=== PATIENT | female | born 1940 | race Caucasian/White ===

== ENCOUNTER 2016-04-10 06:18 | Inpatient (IN) | payer MEDICARE, OTHER ==
[2016-04-10] MEDS ORDERED: Meclizine 12.5 MG Tab PO ONE (06:32)
--- NOTE | 2016-04-10 06:32 | EDM.PDOC ---
<Jason oRbert - Last Filed: 04/10/16 06:55> ED HPI DIZZINESS - General Chief Complaint: Neuro Symptoms/Deficits Stated Complaint: IN BY AMB Time Seen by Provider: 04/10/16 06:27 Source of Information: Reports: Patient, EMS Exam Limitations: Reports: No limitations - History of Present Illness INITIAL COMMENTS - FREE TEXT/NARRATIVE: 75 yo white female c/o dizziness and N&V w/ movement of head. Previous episode last year (seen at [facility]). Symptom Onset Date: 04/10/16 Symptom Onset Time: 12:00 Timing/Duration: Reports: Hour(s): Quality: Reports: lightheaded, vertigo Severity: moderate Improves With: Reports: stationary position Worsens With: Reports: head movement Associated Symptoms: Reports: off balance - Related Data Allergies/ADRs: Allergies Allergy/AdvReac Type Severity Reaction Status Date / Time Penicillins Allergy Cannot Verified 04/10/16 06:23 Remember Home Meds: Home Meds Calcium Carbonate/Vitamin D3 [Calcium 600 + Vit D 400 Tablet] 1 each PO BID [History] Lovastatin 10 mg PO DAILY 04/10/16 [History] Metoprolol Succinate [Toprol XL 50mg] 50 mg PO DAILY 04/10/16 [History] Multivitamin [Multivitamins] 1 each PO DAILY 04/10/16 [History] Warfarin Sodium [Jantoven] 5 mg PO DAILY 04/10/16 [History] ED ROS GENERAL - Review of Systems Review Of Systems: See Below Constitutional: Reports: no symptoms HEENT: Reports: Vertigo Respiratory: Reports: no symptoms Cardiovascular: Reports: No symptoms Endocrine: Reports: no symptoms GI/Abdominal: Reports: No symptoms Musculoskeletal: Reports: no symptoms Skin: Reports: no symptoms Neurological: Reports: dizziness Psychiatric: Reports: No symptoms Hematologic/Lymphatic: Reports: no symptoms Immunologic: Reports: no symptoms ED EXAM, DIZZINESS - Physical Exam Exam: See Below Exam Limited By: No limitations General Appearance: alert, no apparent distress Eye Exam: bilateral eye: PERRL Ears: normal external exam Nose: normal inspection Throat/Mouth: Normal inspection, Normal lips Head Exam: atraumatic Vertigo: reproducible Neck: normal inspection, supple Respiratory/Chest: no respiratory distress, lungs clear Cardiovascular: normal peripheral pulses, regular rate, rhythm GI/Abdominal: normal bowel sounds Neurological: alert, no motor/sensory deficits Back Exam: normal inspection Extremities: normal inspection, normal range of motion Psychiatric: normal affect, normal mood Skin Exam: Warm, Dry Course - Vital Signs Last Recorded V/S: Last Vital Signs Temp 35.9 C 04/10/16 06:24 Pulse 88 04/10/16 06:24 Resp 16 04/10/16 06:24 BP 141/80 H 04/10/16 06:24 Pulse Ox 98 04/10/16 06:24 Orthostatic Blood Pressure [ 143/75 Sitting] Orthostatic Blood Pressure [ 123/66 Supine] - Orders/Labs/Meds Orders: Active Orders 24 hr Category Date Time Status EKG Documentation Completion [RC] URGENT Care 04/10/16 07:34 Active Head wo Cont [CT] Urgent Exams 04/10/16 06:53 Taken Sodium Chloride 0.9% @ 125 MLS/HR (1000ml) Med 04/10/16 09:00 Ordered Sodium Chloride 0.9% [Normal Saline] 1,000 ml IV ASDIRECTED Sodium Chloride 0.9% [Normal Saline] 500 ml Med 04/10/16 06:45 Active IV ASDIRECTED Medication Orders Sodium Chloride (Normal Saline) 500 mls @ 100 mls/hr IV ASDIRECTED SUN Labs: Laboratory Tests 04/10/16 04/10/16 04/10/16 Range/Units 06:45 06:45 06:45 WBC 5.7 (5.0-10.0) 10^3/uL RBC 4.15 L (4.2-5.4) 10^6/uL Hgb 12.6 (12.0-16.0) g/dL Hct 38.2 (37.0-47.0) % MCV 92.0 (80-100) fL MCH 30.4 (27.0-34.0) pg MCHC 33.0 (33.0-35.0) g/dL Plt Count 232 (150-450) 10^3/uL Neut % (Auto) 56.0 (42.2-75.2) % Lymph % (Auto) 28.5 (20.5-50.1) % [place] % (Auto) 8.9 H (2-8) % Eos % (Auto) 5.4 H (1.0-3.0) % Baso % (Auto) 1.2 H (0.0-1.0) % PT (9.0-12.0) SEC INR (0.9-1.2) Sodium 139 (135-145) mmol/L Potassium 3.1 L (3.6-5.0) mmol/L Chloride 105 (101-111) mmol/L Carbon Dioxide 24.0 (21.0-31.0) mmol/L Anion Gap 13.1 BUN 13 (7-18) mg/dL Creatinine 0.8 (0.6-1.3) mg/dL Est Cr Clr Drug Dosing 53.55 mL/min Estimated GFR (MDRD) > 60 BUN/Creatinine Ratio 16.25 Glucose 166 H (74-105) mg/dL Calcium 8.8 (8.4-10.2) mg/dl Total Bilirubin 0.6 (0.2-1.0) mg/dL AST 21 (10-42) IU/L ALT 15 (10-60) IU/L Alkaline Phosphatase 48 (42-121) IU/L Troponin I < 0.02 (0.00-0.02) ng/ml Total Protein 6.8 (6.7-8.2) g/dl Albumin 3.8 (3.2-5.5) g/dl Globulin 3.0 Albumin/Globulin Ratio 1.27 Urine Color (YELLOW) Urine Appearance (CLEAR) Urine pH (5.0-9.0) Ur Specific [place] (1.005-1.030) Urine Protein (NEGATIVE) Urine Glucose (UA) (NEGATIVE) Urine Ketones (NEGATIVE) Urine Occult Blood (NEGATIVE) Urine Nitrite (NEGATIVE) Urine Bilirubin (NEGATIVE) Urine Urobilinogen (0.2-1.0) mg/dL Ur Leukocyte Esterase (NEGATIVE) Urine RBC /HPF Urine WBC (0-5/HPF) /HPF Ur Epithelial Cells /HPF Urine Bacteria (0-FEW/HPF) /HPF Urine Mucus /LPF 04/10/16 04/10/16 Range/Units 06:45 08:15 WBC (5.0-10.0) 10^3/uL RBC (4.2-5.4) 10^6/uL Hgb (12.0-16.0) g/dL Hct (37.0-47.0) % MCV (80-100) fL MCH (27.0-34.0) pg MCHC (33.0-35.0) g/dL Plt Count (150-450) 10^3/uL Neut % (Auto) (42.2-75.2) % Lymph % (Auto) (20.5-50.1) % [place] % (Auto) (2-8) % Eos % (Auto) (1.0-3.0) % Baso % (Auto) (0.0-1.0) % PT 22.9 H (9.0-12.0) SEC INR 2.2 H (0.9-1.2) Sodium (135-145) mmol/L Potassium (3.6-5.0) mmol/L Chloride (101-111) mmol/L Carbon Dioxide (21.0-31.0) mmol/L Anion Gap BUN (7-18) mg/dL Creatinine (0.6-1.3) mg/dL Est Cr Clr Drug Dosing mL/min Estimated GFR (MDRD) BUN/Creatinine Ratio Glucose (74-105) mg/dL Calcium (8.4-10.2) mg/dl Total Bilirubin (0.2-1.0) mg/dL AST (10-42) IU/L ALT (10-60) IU/L Alkaline Phosphatase (42-121) IU/L Troponin I (0.00-0.02) ng/ml Total Protein (6.7-8.2) g/dl Albumin (3.2-5.5) g/dl Globulin Albumin/Globulin Ratio Urine Color Yellow (YELLOW) Urine Appearance Slightly cloudy (CLEAR) Urine pH 6.0 (5.0-9.0) Ur Specific [place] 1.015 (1.005-1.030) Urine Protein Negative (NEGATIVE) Urine Glucose (UA) Negative (NEGATIVE) Urine Ketones Trace H (NEGATIVE) Urine Occult Blood Trace-intact H (NEGATIVE) Urine Nitrite Negative (NEGATIVE) Urine Bilirubin Negative (NEGATIVE) Urine Urobilinogen 0.2 (0.2-1.0) mg/dL Ur Leukocyte Esterase Moderate H (NEGATIVE) Urine RBC 0-5 /HPF Urine WBC 40-50 H (0-5/HPF) /HPF Ur Epithelial Cells Many H /HPF Urine Bacteria Few (0-FEW/HPF) /HPF Urine Mucus Few H /LPF Meds: Medications Generic Name Dose Route Start Last Admin Trade Name Freq PRN Reason Stop Dose Admin Sodium Chloride 500 mls @ 100 mls/hr 04/10/16 06:45 Normal Saline IV ASDIRECTED SUN Discontinued Medications Generic Name Dose Route Start Last Admin Trade Name Faustina PRN Reason Stop Dose Admin Diazepam 5 mg 04/10/16 06:32 Valium IVPUSH 04/10/16 06:33 ONETIME ONE Meclizine HCl 12.5 mg 04/10/16 06:32 04/10/16 07:05 Antivert PO 04/10/16 06:33 12.5 mg ONETIME ONE Administration Departure - Departure Disposition: Admitted As Inpatient 65 Clinical Impression: Vertigo Referrals: PCP,Not In Area [Primary Care Provider] - Care Plan Goals: Discussed the examination, lab, EKG and CT results with Dr. Connors. Dr. Connors accepted the patient for continued evaluation and management as an inpatient at [facility] in [place]. - My Orders Last 24 Hours: My Active Orders 04/10/16 07:34 EKG Documentation Completion [RC] URGENT 04/10/16 09:00 Sodium Chloride 0.9% @ 125 MLS/HR (1000ml) Sodium Chloride 0.9% [Normal Saline] 1,000 ml IV ASDIRECTED - Assessment/Plan Last 24 Hours: My Active Orders 04/10/16 07:34 EKG Documentation Completion [RC] URGENT 04/10/16 09:00 Sodium Chloride 0.9% @ 125 MLS/HR (1000ml) Sodium Chloride 0.9% [Normal Saline] 1,000 ml IV ASDIRECTED <John Paul Mancera - Last Filed: 04/10/16 08:58> Course - Re-Assessments/Exams Free Text/Narrative Re-Assessment/Exam: 04/10/16 07:04 Patient care was taken over at shift change. According to the nursing staff and initial provider, the patient came in with positional vertigo, but now has difficulties remembering the events of the past 24 hours. The patient reports that she has no idea of where she currently is and does not remember what they had for dinner last night. The patient's daughter reports this is not normal for this patient. A CT of the head was ordered, awaiting the results. 04/10/16 07:07 Departure - Departure Time of Disposition: 08:57 Condition: fair - My Orders Last 24 Hours: My Active Orders 04/10/16 07:34 EKG Documentation Completion [RC] URGENT 04/10/16 09:00 Sodium Chloride 0.9% @ 125 MLS/HR (1000ml) Sodium Chloride 0.9% [Normal Saline] 1,000 ml IV ASDIRECTED - Assessment/Plan Last 24 Hours: My Active Orders 04/10/16 07:34 EKG Documentation Completion [RC] URGENT 04/10/16 09:00 Sodium Chloride 0.9% @ 125 MLS/HR (1000ml) Sodium Chloride 0.9% [Normal Saline] 1,000 ml IV ASDIRECTED
[2016-04-10] MEDS ORDERED: Sodium Chloride 0.9% 500 ML IV SCH (06:45)
[2016-04-10 07:13] LABS: CHLORIDE,CL 105 mmol/L (101-111); SODIUM,NA 139 mmol/L (135-145)
[2016-04-10] MEDS ORDERED: Sodium Chloride 0.9% 1,000 ML IV SCH (09:00)
[2016-04-10] MEDS ORDERED: Ondansetron 4 MG/2 ML SDV IV PRN (10:23)
[2016-04-10] MEDS ORDERED: Metoclopramide 10 MG/2 ML SDV IVPUSH PRN (10:23)
[2016-04-10] MEDS ORDERED: Acetaminophen 325 MG Tab PO PRN (10:24)
[2016-04-10] MEDS ORDERED: Ondansetron 4 MG/2 ML SDV IVPUSH PRN (10:24)
[2016-04-10] MEDS ORDERED: Polyethylene Glycol 3350 Powder 17 GM Packet PO PRN (10:24)
[2016-04-10] MEDS ORDERED: Promethazine 25 MG/ML SDV IM PRN (10:24)
[2016-04-10] MEDS ORDERED: Potassium Chloride 10 MEQ Tab.ER PO ONE (10:37)
--- NOTE | 2016-04-10 10:40 | PCM.HP ---
H&P History of Present Illness - General Date of Service: 04/10/16 Admit Problem/Dx: Admission Diagnosis/Problem Admission Diagnosis/Problem Dizziness Source of Information: Patient History Limitations: Reports: No limitations - History of Present Illness Initial Comments - Free Text/Narative: patient presents to ER with sudden dizziness early this morning when she turned in bed. andreas asssociated symptoms are nausea dn vomiting. her spinning like dizziness gets worse with head motion. She had runny echo and sinus congestions 4 days ago but stopped after 2 days. she has no other respiratory sx. she admits urinary frequency for the last 2 weeks but no dysuria. she denies fever, chills or any other symptoms. In ER her lab was remarkable only for K 3.1. CT head and EKG unremarkable. She was given IV fluids, meclizine, and valium and patient felt better. - Related Data Allergies/Adverse Reactions: Allergies Allergy/AdvReac Type Severity Reaction Status Date / Time Penicillins Allergy Cannot Verified 04/10/16 06:23 Remember Home Medications: Home Meds Calcium Carbonate/Vitamin D3 [Calcium 600 + Vit D 400 Tablet] 1 each PO BID [History] Lovastatin 10 mg PO DAILY 04/10/16 [History] Metoprolol Succinate [Toprol XL 50mg] 50 mg PO DAILY 04/10/16 [History] Multivitamin [Multivitamins] 1 each PO DAILY 04/10/16 [History] Warfarin Sodium [Jantoven] 5 mg PO DAILY 04/10/16 [History] Past Medical History HEENT History: Reports: Other (see below) Other HEENT History: vertigo Cardiovascular History: Reports: Hypertension Social & Family History - Family History Family Medical History: Noncontributory - Tobacco Use Smoking Status *Q: Never Smoker - Caffeine Use Caffeine Use: Reports: Coffee - Recreational Drug Use Recreational Drug Use: No H&P Review of Systems - Review of Systems: Review Of Systems: See Below General: Reports: no symptoms HEENT: Denies: dysphasia, ear pain, eye pain, headaches, hearing changes, post nasal drip, sore throat, visual changes Pulmonary: Reports: no symptoms Cardiovascular: Reports: no symptoms Gastrointestinal: Denies: Abdominal pain, Anorexia, Black stool, Bloody stool, Constipation, Diarrhea, Decreased appetite, Difficulty swallowing, Distension, Hematemesis, Hematochezia, Melena Genitourinary: Reports: frequency. Denies: dysuria, burning, pain Musculoskeletal: Reports: no symptoms Skin: Reports: no symptoms Psychiatric: Reports: no symptoms Neurological: Reports: no symptoms Hematologic/Lymphatic: Reports: no symptoms Immunologic: Reports: no symptoms Exam - Exam Exam: See Below - Vital Signs Vital Signs: Last Vital Signs Temp 35.9 C 04/10/16 06:24 Pulse 88 04/10/16 06:24 Resp 16 04/10/16 06:24 BP 141/80 H 04/10/16 06:24 Pulse Ox 98 04/10/16 06:24 Weight: 56.699 kg - Exam General: alert, oriented, cooperative, mild distress (due to dizziness. trying to hold still in bed) HEENT: Conjunctiva clear, EACs clear, EOMI, Hearing intact, Mucosa moist & pink , Nares patent, Normal nasal septum, Posterior pharynx clear, Pupils equal, Pupils reactive, TMs clear, PERRLA Neck: supple, trachea midline, 2+ carotid pulse wo bruit Lungs: Clear to auscultation, Normal respiratory effort Cardiovascular: regular rate, regular rhythm Abdomen: normal bowel sounds, soft. No: distention, guarding, rigidity, rebound , tenderness Back Exam: normal inspection. No: CVA tenderness (R) Extremities: normal inspection Neurological: cranial nerves intact, reflexes equal bilateral Neuro Extensive - Mental Status: alert, oriented x3, normal mood/affect, normal cognition, memory intact Neuro Extensive - Motor, Sensory, Reflexes: CN II-XII intact, normal reflexes. No: abnormal sensation Psychiatric: alert, normal affect, normal mood - Patient Data Result Diagrams: 04/10/16 06:45 04/10/16 06:45 *Q Meaningful Use (ADM) - VTE *Q VTE Criteria *Q: VTE Anticoagulation Contraindications: Med/tx not indicated/need - Stroke *Q Stroke Criteria *Q: - AMI *Q AMI Criteria *Q: - Problem List (1) Nausea and vomiting SNOMED Code(s): 99910866 ICD Code: R11.2 - NAUSEA WITH VOMITING, UNSPECIFIED Status: Acute Priority: Medium Current Visit: Yes (2) Complicated UTI (urinary tract infection) SNOMED Code(s): 57576391 ICD Code: N39.0 - URINARY TRACT INFECTION, SITE NOT SPECIFIED Status: Acute Priority: Medium Current Visit: Yes (3) Right leg DVT SNOMED Code(s): 671804657 ICD Code: I82.401 - ACUTE EMBOLISM AND THOMBOS UNSP DEEP VEINS OF R LOW EXTREM Status: Chronic Priority: Medium Current Visit: Yes (4) Runny nose SNOMED Code(s): 57313798 ICD Code: R09.89 - OTH SYMPTOMS AND SIGNS INVOLVING THE CIRC AND RESP SYSTEMS Status: Chronic Current Visit: Yes (5) HTN (hypertension) SNOMED Code(s): 36412676 ICD Code: I10 - ESSENTIAL (PRIMARY) HYPERTENSION Status: Chronic Current Visit: Yes (6) Vertigo SNOMED Code(s): 162664074 ICD Code: R42 - DIZZINESS AND GIDDINESS Status: Acute Priority: High Current Visit: Yes Problem List Initiated/Reviewed/Updated: Yes Orders Last 24hrs: Active Orders 24 hr Category Date Time Status PT Evaluation and Treatment [CONS] Routine Cons 04/10/16 10:24 Active Regular Diet [DIET] Diet 04/10/16 Breakfast Active CK W CKMB [CHEM] Routine Lab 04/10/16 10:24 Ordered CULTURE URINE [RM] Routine Lab 04/10/16 10:22 Ordered CULTURE URINE [RM] Stat Lab 04/10/16 10:24 Uncollected MAGNESIUM [CHEM] AM Lab 04/11/16 05:11 Ordered PHOSPHORUS [CHEM] AM Lab 04/11/16 05:11 Ordered TROPONIN I [CHEM] Routine Lab 04/10/16 10:24 Ordered Acetaminophen [Tylenol] Med 04/10/16 10:24 Ordered 650 mg PO Q4H PRN Metoclopramide [Reglan] Med 04/10/16 10:23 Ordered 10 mg IVPUSH Q6H PRN Ondansetron [Zofran] Med 04/10/16 10:23 Ordered 4 mg IV Q6H PRN Ondansetron [Zofran] Med 04/10/16 10:24 Ordered 4 mg IVPUSH Q6H PRN Polyethylene Glycol 3350 [MiraLAX] Med 04/10/16 10:24 Ordered 17 gm PO DAILY PRN Promethazine [Phenergan] Med 04/10/16 10:24 Ordered 12.5 mg IM Q6H PRN Sodium Chloride 0.9% [Normal Saline] 1,000 ml Med 04/10/16 10:30 Ordered IV ASDIRECTED Medication Orders Acetaminophen (Tylenol) 650 mg PO Q4H PRN PRN Reason: Pain (Mild 1-3)/fever Sodium Chloride (Normal Saline) 500 mls @ 100 mls/hr IV ASDIRECTED SUN Sodium Chloride (Normal Saline) 1,000 mls @ 125 mls/hr IV ASDIRECTED SUN Sodium Chloride (Normal Saline) 1,000 mls @ 125 mls/hr IV ASDIRECTED SUN Metoclopramide HCl (Reglan) 10 mg IVPUSH Q6H PRN PRN Reason: nausea and vomiting Metoprolol Succinate (Toprol Xl) 50 mg PO DAILY [facility] Multivitamins/Minerals (Vitamins And Minerals) 1 tab PO DAILY SUN Ondansetron HCl (Zofran) 4 mg IV Q6H PRN PRN Reason: Nausea/Vomiting Ondansetron HCl (Zofran) 4 mg IVPUSH Q6H PRN PRN Reason: Nausea/Vomiting Polyethylene Glycol (Miralax) 17 gm PO DAILY PRN PRN Reason: Constipation Promethazine HCl (Phenergan) 12.5 mg IM Q6H PRN PRN Reason: Nausea/Vomiting Warfarin Sodium (Coumadin) 5 mg PO DAILY [facility] Assessment/Plan Comment:: Vertigo Could be vistibualr vs BPPV she received Valium, meclizine in ER She did not have orthostatic hypertension Will continue IVF infusion Meclizine q6h antiemetics as needed PT consutl tomorrow Nausea and vomiting likley related to vertig antiemetics as needed complicated UTI Urine cx is sent to lab Rocephin IV Runny nose patient states that it happens oftent o her and may have seasonal allergy Flonase HTN fairly controled BP resume Toprol XL DVT in R leg after hip surgery last November Continue Warfarin deyvi ompleter 6 month On warfarin so no need for additional DVT prophylaxis Full code
[2016-04-10] MEDS: Sodium Chloride 0.9% 1,000 ML IV SCH ×2 (11:06→19:21)
[2016-04-10] MEDS: cefTRIAXone 1 GM in Sodium Chloride 0.9% 100 ML IV SCH (11:08)
[2016-04-10] MEDS: Meclizine 12.5 MG Tab PO SCH ×3 (12:37→21:59)
[2016-04-10] MEDS: Fluticasone Propionate Nasal Spray 16 GM Bottle NASBOTH SCH ×2 (12:38→21:57)
[2016-04-10] MEDS ORDERED: Warfarin 5 MG Tab PO SCH (14:00)
[2016-04-11] MEDS: Sodium Chloride 0.9% 1,000 ML IV SCH ×2 (03:14→11:20)
[2016-04-11] MEDS: Meclizine 12.5 MG Tab PO SCH ×4 (05:19→20:03)
[2016-04-11] MEDS: Metoprolol Succinate 50 MG Tab.ER PO SCH (09:03)
[2016-04-11] MEDS: Fluticasone Propionate Nasal Spray 16 GM Bottle NASBOTH SCH ×2 (09:04→20:03)
[2016-04-11] MEDS: Multivitamins, Therapeutic with Minerals Tab PO SCH (09:04)
[2016-04-11] MEDS: cefTRIAXone 1 GM in Sodium Chloride 0.9% 100 ML IV SCH (11:22)
[2016-04-11] MEDS ORDERED: Warfarin 5 MG Tab PO SCH (13:28)
[2016-04-11] MEDS ORDERED: Warfarin 5 MG Tab PO ONE (14:15)
--- NOTE | 2016-04-11 18:03 | PCM.PN ---
- General Info Date of Service: 04/11/16 Subjective Update: Patient still with dizziness today, worse with head movement and turning in bed. Therapy worked with her however dizziness persisted. reports history of the same symptoms 35 years ago. the meclizine that was ordered somehow helps with the symptoms as she has reported. also reports that she has been having urinary frequency and urgency. no diarrhea and has been tolerating meals well. - Patient Data Vitals - most recent: Last Vital Signs Temp 37.6 C 04/11/16 16:00 Pulse 76 04/11/16 16:00 Resp 20 04/11/16 16:00 BP 148/82 H 04/11/16 16:00 Pulse Ox 97 04/11/16 16:00 Weight - most recent: 56.699 kg I&O - last 24 hours: Intake & Output 04/11/16 04/11/16 04/11/16 06:59 14:59 22:59 Intake Total 1326 1110 Output Total 1000 1950 Balance 326 -840 Lab Results last 24 hrs: Laboratory Results - last 24 hr 04/11/16 04/11/16 Range/Units 06:25 06:25 Potassium 4.1 (3.6-5.0) mmol/L Phosphorus 2.4 L (2.5-4.6) mg/dL Magnesium 2.0 (1.8-2.5) mg/dL Med Orders - Current: Current Medications Acetaminophen (Tylenol) 650 mg PO Q4H PRN PRN Reason: Pain (Mild 1-3)/fever Fluticasone Propionate (Flonase) 0 gm NASBOTH BID [facility] Last Admin: 04/11/16 09:04 Dose: 1 spray Sodium Chloride (Normal Saline) 1,000 mls @ 125 mls/hr IV ASDIRECTED [facility] Last Admin: 04/11/16 11:20 Dose: 125 mls/hr Ceftriaxone Sodium 1 gm/ (Sodium Chloride) 100 mls @ 200 mls/hr IV Q24H [facility] Last Admin: 04/11/16 11:22 Dose: 200 mls/hr Meclizine HCl (Antivert) 25 mg PO TID [facility] Last Admin: 04/11/16 14:25 Dose: 25 mg Metoclopramide HCl (Reglan) 10 mg IVPUSH Q6H PRN PRN Reason: nausea and vomiting Metoprolol Succinate (Toprol Xl) 50 mg PO DAILY [facility] Last Admin: 04/11/16 09:03 Dose: 50 mg Multivitamins/Minerals (Vitamins And Minerals) 1 tab PO DAILY [facility] Last Admin: 04/11/16 09:04 Dose: 1 tab Ondansetron HCl (Zofran) 4 mg IV Q6H PRN PRN Reason: Nausea/Vomiting Ondansetron HCl (Zofran) 4 mg IVPUSH Q6H PRN PRN Reason: Nausea/Vomiting Polyethylene Glycol (Miralax) 17 gm PO DAILY PRN PRN Reason: Constipation Warfarin Sodium (Coumadin) 0 mg PO DAILY@1400 [facility] Discontinued Medications Diazepam (Valium) 5 mg IVPUSH ONETIME ONE Stop: 04/10/16 06:33 Last Admin: 04/10/16 12:27 Dose: Not Given Sodium Chloride (Normal Saline) 500 mls @ 100 mls/hr IV ASDIRECTED [facility] Sodium Chloride (Normal Saline) 1,000 mls @ 125 mls/hr IV ASDIRECTED [facility] Meclizine HCl (Antivert) 12.5 mg PO ONETIME ONE Stop: 04/10/16 06:33 Last Admin: 04/10/16 07:05 Dose: 12.5 mg Meclizine HCl (Antivert) 12.5 mg PO Q6H [facility] Last Admin: 04/11/16 11:22 Dose: 12.5 mg Potassium Chloride (Klor-Con 10) 40 meq PO ONETIME ONE Stop: 04/10/16 10:38 Last Admin: 04/10/16 11:19 Dose: 40 meq Promethazine HCl (Phenergan) 12.5 mg IM Q6H PRN PRN Reason: Nausea/Vomiting Warfarin Sodium (Coumadin) 5 mg PO DAILY@1400 [facility] Last Admin: 04/10/16 14:22 Dose: 5 mg Warfarin Sodium (Coumadin) 5 mg PO ONETIME ONE Stop: 04/11/16 14:16 Last Admin: 04/11/16 14:42 Dose: 5 mg - Exam General: alert, oriented Lungs: Clear to auscultation, Normal respiratory effort Cardiovascular: regular rate, regular rhythm Abdomen: bowel sounds present, soft, no tenderness - Problem List Review Problem List Initiated/Reviewed/Updated: Yes - My Orders Last 24 Hours: My Active Orders 04/11/16 13:28 Warfarin [Coumadin] See Dose Instructions PO DAILY@1400 04/11/16 14:00 Meclizine [Antivert] 25 mg PO TID 04/12/16 06:00 INR,PT,PROTHROMBIN TIME [COAG] DAILY 04/13/16 06:00 INR,PT,PROTHROMBIN TIME [COAG] DAILY 04/14/16 06:00 INR,PT,PROTHROMBIN TIME [COAG] DAILY 04/15/16 06:00 INR,PT,PROTHROMBIN TIME [COAG] DAILY - Plan Plan:: Vertigo -continue meclizine Nausea and vomiting -shantanuley related to vertig0 -antiemetics as needed complicated UTI Urine cx is sent to lab Rocephin IV Runny nose patient states that it happens often to her and may have seasonal allergy Flonase HTN fairly controled BP resume Toprol XL DVT in R leg after hip surgery last November Continue Warfarin to complete 6 month DVT prophylaxis: on warfarin Full code
[2016-04-11] MEDS: Loratadine 10 MG Tab PO SCH (20:00)
[2016-04-12] MEDS ORDERED: Loratadine 10 MG Tab PO SCH (09:00)
[2016-04-12] MEDS: Meclizine 12.5 MG Tab PO SCH ×3 (09:12→20:40)
[2016-04-12] MEDS: Multivitamins, Therapeutic with Minerals Tab PO SCH (09:12)
[2016-04-12] MEDS: Loratadine 10 MG Tab PO SCH (09:12)
[2016-04-12] MEDS: Metoprolol Succinate 50 MG Tab.ER PO SCH (09:12)
[2016-04-12] MEDS: Fluticasone Propionate Nasal Spray 16 GM Bottle NASBOTH SCH ×2 (09:13→20:42)
[2016-04-12] MEDS: cefTRIAXone 1 GM in Sodium Chloride 0.9% 100 ML IV SCH (11:09)
[2016-04-12] MEDS ORDERED: Warfarin 5 MG Tab PO ONE (14:00)
--- NOTE | 2016-04-12 16:23 | PCM.PN ---
- General Info Date of Service: 04/12/16 Subjective Update: Patient feels better today. the dizziness is better though still there. no hearing loss, she has tinnitus chronically. no headache. yesterday, there was a concern regarding puffiness of her face however after discontinuing the IV fluids, this has somehow subsided. she is tolerating diet. no chest pain nor shortness. still with urinary frequency. - Patient Data Vitals - most recent: Last Vital Signs Temp 37.3 C 04/12/16 15:44 Pulse 80 04/12/16 15:44 Resp 20 04/12/16 15:44 BP 125/77 04/12/16 15:44 Pulse Ox 97 04/12/16 15:44 Weight - most recent: 56.699 kg I&O - last 24 hours: Intake & Output 04/12/16 04/12/16 04/12/16 06:59 14:59 22:59 Intake Total 475 Balance 475 Med Orders - Current: Current Medications Acetaminophen (Tylenol) 650 mg PO Q4H PRN PRN Reason: Pain (Mild 1-3)/fever Fluticasone Propionate (Flonase) 0 gm NASBOTH BID [facility] Last Admin: 04/12/16 09:13 Dose: 1 spray Ceftriaxone Sodium 1 gm/ (Sodium Chloride) 100 mls @ 200 mls/hr IV Q24H [facility] Last Admin: 04/12/16 11:09 Dose: 200 mls/hr Loratadine (Claritin) 10 mg PO DAILY [facility] Last Admin: 04/12/16 09:12 Dose: 10 mg Meclizine HCl (Antivert) 25 mg PO TID [facility] Last Admin: 04/12/16 13:51 Dose: 25 mg Metoclopramide HCl (Reglan) 10 mg IVPUSH Q6H PRN PRN Reason: nausea and vomiting Metoprolol Succinate (Toprol Xl) 50 mg PO DAILY [facility] Last Admin: 04/12/16 09:12 Dose: 50 mg Multivitamins/Minerals (Vitamins And Minerals) 1 tab PO DAILY [facility] Last Admin: 04/12/16 09:12 Dose: 1 tab Ondansetron HCl (Zofran) 4 mg IV Q6H PRN PRN Reason: Nausea/Vomiting Ondansetron HCl (Zofran) 4 mg IVPUSH Q6H PRN PRN Reason: Nausea/Vomiting Polyethylene Glycol (Miralax) 17 gm PO DAILY PRN PRN Reason: Constipation Warfarin Sodium (Coumadin) 0 mg PO DAILY@1400 [facility] Discontinued Medications Diazepam (Valium) 5 mg IVPUSH ONETIME ONE Stop: 04/10/16 06:33 Last Admin: 04/10/16 12:27 Dose: Not Given Sodium Chloride (Normal Saline) 500 mls @ 100 mls/hr IV ASDIRECTED SUN Sodium Chloride (Normal Saline) 1,000 mls @ 125 mls/hr IV ASDIRECTED [facility] Sodium Chloride (Normal Saline) 1,000 mls @ 125 mls/hr IV ASDIRECTED [facility] Last Admin: 04/11/16 11:20 Dose: 125 mls/hr Loratadine (Claritin) 10 mg PO DAILY [facility] Meclizine HCl (Antivert) 12.5 mg PO ONETIME ONE Stop: 04/10/16 06:33 Last Admin: 04/10/16 07:05 Dose: 12.5 mg Meclizine HCl (Antivert) 12.5 mg PO Q6H [facility] Last Admin: 04/11/16 11:22 Dose: 12.5 mg Potassium Chloride (Klor-Con 10) 40 meq PO ONETIME ONE Stop: 04/10/16 10:38 Last Admin: 04/10/16 11:19 Dose: 40 meq Promethazine HCl (Phenergan) 12.5 mg IM Q6H PRN PRN Reason: Nausea/Vomiting Warfarin Sodium (Coumadin) 5 mg PO DAILY@1400 [facility] Last Admin: 04/10/16 14:22 Dose: 5 mg Warfarin Sodium (Coumadin) 5 mg PO ONETIME ONE Stop: 04/11/16 14:16 Last Admin: 04/11/16 14:42 Dose: 5 mg Warfarin Sodium (Coumadin) 5 mg PO ONETIME ONE Stop: 04/12/16 14:01 Last Admin: 04/12/16 13:51 Dose: 5 mg - Exam General: alert, oriented Lungs: Clear to auscultation, Normal respiratory effort Cardiovascular: regular rate, regular rhythm Abdomen: bowel sounds present, soft, no tenderness Psy/Mental Status: alert - Problem List & Annotations (1) Complicated UTI (urinary tract infection) SNOMED Code(s): 90916733 Code(s): N39.0 - URINARY TRACT INFECTION, SITE NOT SPECIFIED Status: Acute Priority: Medium Current Visit: Yes (2) Vertigo SNOMED Code(s): 182914901 Code(s): R42 - DIZZINESS AND GIDDINESS Status: Acute Priority: High Current Visit: Yes (3) HTN (hypertension) SNOMED Code(s): 63750336 Code(s): I10 - ESSENTIAL (PRIMARY) HYPERTENSION Status: Chronic Current Visit: Yes - Problem List Review Problem List Initiated/Reviewed/Updated: Yes - Plan Plan:: complicated UTI Urine cx is sent to lab 04/10: called lab as of 04/12, preliminary showed 3 colonies Rocephin IV Vertigo - clinically getting better - CT Scan has ruled out stroke - continue meclizine Rhinorrhea - on flonase HTN - on Toprol DVT in R leg after hip surgery last November Continue Warfarin to complete 6 month DVT prophylaxis: on warfarin Full code
[2016-04-13 06:51] LABS: CHLORIDE,CL 104 mmol/L (101-111); SODIUM,NA 138 mmol/L (135-145)
[2016-04-13] MEDS: Meclizine 12.5 MG Tab PO SCH ×3 (08:50→20:51)
[2016-04-13] MEDS: Metoprolol Succinate 50 MG Tab.ER PO SCH (08:50)
[2016-04-13] MEDS: Loratadine 10 MG Tab PO SCH (08:50)
[2016-04-13] MEDS: Multivitamins, Therapeutic with Minerals Tab PO SCH (08:50)
[2016-04-13] MEDS: Fluticasone Propionate Nasal Spray 16 GM Bottle NASBOTH SCH ×2 (08:51→20:50)
[2016-04-13] MEDS: cefTRIAXone 1 GM in Sodium Chloride 0.9% 100 ML IV SCH (11:40)
--- NOTE | 2016-04-13 12:20 | PN ---
DATE: 04/13/2016 SUBJECTIVE: Ms. Shilpi Dockery is a 75-year-old female who was admitted with vertigo, nausea, and vomiting. She was found to have symptoms suggestive of UTI. Today, the patient indicated she still feels a little dizzy, but this happens mostly with activity or when she stands. It is more like unsteadiness on her feet. No vomiting at this time. No fever. Still feels weak. REVIEW OF SYSTEMS: Constitutional, cardiac, genitourinary, respiratory, and gastrointestinal reviewed. No other pertinent findings. OBJECTIVE: General: The patient is alert, oriented to place, time, and person. Head: Atraumatic and normocephalic. Ear, Nose, and Throat: Unremarkable. Chest: Good air entry bilaterally. CVS: Regular rate and rhythm. Abdomen: Soft, nontender. Extremities: No pedal edema. Vital Signs: Reviewed. All within normal limits. LABORATORY DATA: INR is 2.6. ASSESSMENT: 1. Urinary tract infection. Urine culture shows Trichomonas. Apparently, she was symptomatic with nausea and vomiting. We will treat her. 2. Vertigo, probably peripheral. Had similar symptom of UTI in the past. 3. Hypertension, has been on Toprol. 4. Chronic anticoagulation. INR is therapeutic. PLAN: 1. Continue Rocephin. 2. Encourage increased activity. 3. Monitor closely for the next 24 hours. If the patient remains stable, we will discharge tomorrow. [facility] /[id number]
[2016-04-13] MEDS ORDERED: Sodium Chloride 0.9% 10 ML Syringe FLUSH PRN (12:47)
[2016-04-13] MEDS ORDERED: Warfarin 2 MG Tab PO ONE (14:00)
[2016-04-14] MEDS: Meclizine 12.5 MG Tab PO SCH ×3 (08:28→20:50)
[2016-04-14] MEDS: Metoprolol Succinate 50 MG Tab.ER PO SCH (08:28)
[2016-04-14] MEDS: Loratadine 10 MG Tab PO SCH (08:28)
[2016-04-14] MEDS: Multivitamins, Therapeutic with Minerals Tab PO SCH (08:28)
[2016-04-14] MEDS: Fluticasone Propionate Nasal Spray 16 GM Bottle NASBOTH SCH ×2 (08:29→20:57)
[2016-04-14] MEDS: cefTRIAXone 1 GM in Sodium Chloride 0.9% 100 ML IV SCH (11:40)
[2016-04-14] MEDS ORDERED: Warfarin 5 MG Tab PO ONE (14:00)
--- NOTE | 2016-04-15 04:21 | PCM.PN ---
- General Info Date of Service: 04/14/16 Subjective Update: Patient feels better today although she reports that dizziness is still there. DIzziness better though, she does not feel that nauseated compared to before. she denies any pain. no cough nor shortness of breath. has normal bowel movements and tolerating diet well. has not been able to ambulate that much due to dizziness. she lives alone and does her own chores at home. - Patient Data Vitals - most recent: Last Vital Signs Temp 36.9 C 04/14/16 23:00 Pulse 83 04/14/16 23:00 Resp 20 04/14/16 23:00 BP 131/73 04/14/16 23:00 Pulse Ox 97 04/14/16 23:00 Weight - most recent: 56.699 kg I&O - last 24 hours: Intake & Output 04/14/16 04/14/16 04/15/16 14:59 22:59 06:59 Intake Total 545 600 Balance 545 600 Lab Results last 24 hrs: Laboratory Results - last 24 hr 04/14/16 Range/Units 06:15 PT 27.4 H (9.0-12.0) SEC INR 2.6 H (0.9-1.2) Med Orders - Current: Current Medications Acetaminophen (Tylenol) 650 mg PO Q4H PRN PRN Reason: Pain (Mild 1-3)/fever Fluticasone Propionate (Flonase) 0 gm NASBOTH BID [facility] Last Admin: 04/14/16 20:57 Dose: 2 spray Ceftriaxone Sodium 1 gm/ (Sodium Chloride) 100 mls @ 200 mls/hr IV Q24H [facility] Last Admin: 04/14/16 11:40 Dose: 200 mls/hr Loratadine (Claritin) 10 mg PO DAILY [facility] Last Admin: 04/14/16 08:28 Dose: 10 mg Meclizine HCl (Antivert) 25 mg PO TID [facility] Last Admin: 04/14/16 20:50 Dose: 25 mg Metoclopramide HCl (Reglan) 10 mg IVPUSH Q6H PRN PRN Reason: nausea and vomiting Metoprolol Succinate (Toprol Xl) 50 mg PO DAILY [facility] Last Admin: 04/14/16 08:28 Dose: 50 mg Multivitamins/Minerals (Vitamins And Minerals) 1 tab PO DAILY [facility] Last Admin: 04/14/16 08:28 Dose: 1 tab Ondansetron HCl (Zofran) 4 mg IV Q6H PRN PRN Reason: Nausea/Vomiting Ondansetron HCl (Zofran) 4 mg IVPUSH Q6H PRN PRN Reason: Nausea/Vomiting Polyethylene Glycol (Miralax) 17 gm PO DAILY PRN PRN Reason: Constipation Sodium Chloride (Saline Flush) 10 ml FLUSH BID PRN PRN Reason: Keep Vein Open Warfarin Sodium (Coumadin) 0 mg PO DAILY@1400 [facility] Discontinued Medications Diazepam (Valium) 5 mg IVPUSH ONETIME ONE Stop: 04/10/16 06:33 Last Admin: 04/10/16 12:27 Dose: Not Given Sodium Chloride (Normal Saline) 500 mls @ 100 mls/hr IV ASDIRECTED [facility] Sodium Chloride (Normal Saline) 1,000 mls @ 125 mls/hr IV ASDIRECTED [facility] Sodium Chloride (Normal Saline) 1,000 mls @ 125 mls/hr IV ASDIRECTED [facility] Last Admin: 04/11/16 11:20 Dose: 125 mls/hr Loratadine (Claritin) 10 mg PO DAILY [facility] Meclizine HCl (Antivert) 12.5 mg PO ONETIME ONE Stop: 04/10/16 06:33 Last Admin: 04/10/16 07:05 Dose: 12.5 mg Meclizine HCl (Antivert) 12.5 mg PO Q6H [facility] Last Admin: 04/11/16 11:22 Dose: 12.5 mg Potassium Chloride (Klor-Con 10) 40 meq PO ONETIME ONE Stop: 04/10/16 10:38 Last Admin: 04/10/16 11:19 Dose: 40 meq Promethazine HCl (Phenergan) 12.5 mg IM Q6H PRN PRN Reason: Nausea/Vomiting Warfarin Sodium (Coumadin) 5 mg PO DAILY@1400 [facility] Last Admin: 04/10/16 14:22 Dose: 5 mg Warfarin Sodium (Coumadin) 5 mg PO ONETIME ONE Stop: 04/11/16 14:16 Last Admin: 04/11/16 14:42 Dose: 5 mg Warfarin Sodium (Coumadin) 5 mg PO ONETIME ONE Stop: 04/12/16 14:01 Last Admin: 04/12/16 13:51 Dose: 5 mg Warfarin Sodium (Coumadin) 4 mg PO ONETIME ONE Stop: 04/13/16 14:01 Last Admin: 04/13/16 14:36 Dose: 4 mg Warfarin Sodium (Coumadin) 5 mg PO ONETIME ONE Stop: 04/14/16 14:01 Last Admin: 04/14/16 13:36 Dose: 5 mg - Exam General: alert, oriented Lungs: Clear to auscultation, Normal respiratory effort Cardiovascular: regular rate, regular rhythm Abdomen: bowel sounds present, soft, no tenderness - Problem List & Annotations (1) Complicated UTI (urinary tract infection) SNOMED Code(s): 56190928 Code(s): N39.0 - URINARY TRACT INFECTION, SITE NOT SPECIFIED Status: Acute Priority: Medium (2) Vertigo SNOMED Code(s): 890389205 Code(s): R42 - DIZZINESS AND GIDDINESS Status: Acute Priority: High (3) HTN (hypertension) SNOMED Code(s): 55380046 Code(s): I10 - ESSENTIAL (PRIMARY) HYPERTENSION Status: Chronic - Problem List Review Problem List Initiated/Reviewed/Updated: Yes - My Orders Last 24 Hours: My Active Orders 04/14/16 10:25 Consult to Physical Therapy [PT Evaluation and Treatment] [CONS] Routine - Plan Plan:: complicated UTI still awaiting cultures will transition IV abx to PO Vertigo - clinically getting better - CT Scan has ruled out stroke - continue meclizine Rhinorrhea - on flonase HTN - on Toprol DVT in R leg after hip surgery last November Continue Warfarin to complete 6 month DVT prophylaxis: on warfarin Full code DISPOSITIOn: it would be prudent to wait for the final reading of urine cultures to determine the sensitivities of the organism so that patient can be discharge on proper antibiotic. we will have physical therapy work with her too given the dizziness and to assess if she is safe to go home on her own and resume her own daily activities and chores,
[2016-04-15] MEDS ORDERED: Cefuroxime 250 MG Tab PO SCH (09:00)
[2016-04-15] MEDS: Multivitamins, Therapeutic with Minerals Tab PO SCH (09:41)
[2016-04-15] MEDS: Loratadine 10 MG Tab PO SCH (09:41)
[2016-04-15] MEDS: Meclizine 12.5 MG Tab PO SCH ×2 (09:42→13:19)
[2016-04-15] MEDS: Metoprolol Succinate 50 MG Tab.ER PO SCH (09:42)
[2016-04-15] MEDS: Fluticasone Propionate Nasal Spray 16 GM Bottle NASBOTH SCH (09:42)
[2016-04-15] MEDS ORDERED: Warfarin 5 MG Tab PO SCH (14:00)
[2016-04-15 15:13] VITALS: BP 134/82
--- NOTE | 2016-04-16 15:29 | DISCH ---
FINAL DIAGNOSES: 1. Urinary tract infection. 2. Dizziness. 3. Hypertension. 4. Warfarin anticoagulation for history of deep vein thrombosis. HISTORY OF PRESENT ILLNESS: The patient is a 75-year-old female, who was admitted here because of vertigo, nausea, vomiting, also was noted to have symptoms suggestive of UTI. On admission, vital signs showed blood pressure of 141/80, heart rate of 88 beats per minute, respirations 16 breaths per minute, oxygen saturation 98%, temperature 35.9. Pertinent documented examination, right CVA tenderness. The rest are within normal limits. Also, patient appeared to be in mild distress due to dizziness and tried to hold still in bed. LABORATORY DATA: Workup done in the hospital admitting CBC showed WBC of 5.7, hemoglobin 12.6, platelets 233. Initial INR 2.2. Initial potassium 3.1. Troponin less than 0.02, the same as repeat troponin less than 0.02. Urinalysis showed moderate leukocyte esterase with urine wbc's 40 to 50. The latest BMP showed a sodium of 138, potassium 3.7, chloride 104, GFR more than 60. Creatinine 0.8. Microbiologic study showed urine culture final reading of Streptococcus anginosus. BRIEF HOSPITAL COURSE: The patient was admitted under medical-surgical bed. Because of the vertigo, the patient was referred to physical therapy, however, dizziness has not resolved with the maneuver. She was continued on IV Rocephin for her findings suggestive of urinary tract infection. She is also having urinary frequency. Toprol was continued for her hypertension. Warfarin anticoagulation for her DVT. She was started on initially meclizine 12.5. q.6 hours this was increased to 25 mg t.i.d. which she reports significantly helped with the dizziness. She was also started on Flonase and loratadine for her upper respiratory tract infection. The patient remains hemodynamically stable during her stay. Subsequently, her dizziness is starting to get better. She was also evaluated by physical therapy as she lives alone and with this dizziness to make sure that she is able to ambulate and function well at home and she was cleared by physical therapy. PHYSICAL EXAMINATION: Physical examination done on discharge; Vital Signs: Blood pressure 134/82, heart rate of 76 beats per minute, respirations normal, temperature 36.4, oxygen saturation 97%. General Appearance: Awake, in distress. Chest: Symmetric chest expansion. Lungs: Bilateral air entry. CVS: Regular rate and rhythm. Abdomen: Soft. Normoactive bowel sounds. DISCHARGE INSTRUCTIONS: The patient to be discharged home. She will be staying with her daughter for a while before [place] She will follow up with the primary care provider within 1 week from discharge. She is to complete antibiotics for her urinary tract infection. Monitor for side effects for antibiotics. She will come back to the emergency room if with emergent health concerns. [facility] /[id number] MTDD
--- NOTE | 2016-04-18 10:06 | EKG ---
04/10/2016- KVNG GONSALES - TIME OF EK:29:13. I reviewed the EKG and agree with the machine's reading. [facility] /[id number]
== END 2016-04-15 16:00 | disposition home or self-care (01) | DRG 690 ==
LOC: DL.ED 06:18 → DL.MS 09:15 → UNDOADMOB 09:15 → DL.ED 09:22 → UNDOADMOB 10:19 → DL.MS 10:19 → OBSVTOIN 04-12 15:26 → INTOOBSV 04-12 15:26
PROVIDERS: ADMIT Family Medicine; ATTEND Internal Medicine
DX: R42 Dizziness and giddiness (principal); N39.0 Urinary tract infection, site not specified; R35.0 Frequency of micturition; R11.2 Nausea with vomiting, unspecified; Z79.01 Long term (current) use of anticoagulants; I10 Essential (primary) hypertension; J34.89 Other specified disorders of nose and nasal sinuses; H93.19 Tinnitus, unspecified ear; B96.89 Other specified bacterial agents as the cause of diseases classified elsewhere; Z86.718 Personal history of other venous thrombosis and embolism
CPT/HCPCS: 36415 ×3; 70450; 80053; 81001; 82550; 82553; 83735; 84100; 84132; 84484 ×2; 85025; 85610 ×2; 87086; 93005; 93010; 96361 ×2; 96365; 96366 ×2; 97161; 99285; A9270 ×21; G0378 ×2; J0696 ×3; J7030 ×4; J7050 ×3; 80048; 87088; 97162-GP